=== PATIENT | female | born 2000 | race Caucasian/White ===

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

== ENCOUNTER 2023-09-04 05:18 | Inpatient (IN) ==
[2023-09-04] MEDS ORDERED: Buffered Lidocaine 1% SYRIN 1 ml INTRADERM ONE (05:30)
[2023-09-04] MEDS ORDERED: ceFOXitin 2 GM IVPREMIX 2 GM/50 ML BAG IVPB ONE (05:30)
[2023-09-04] MEDS ORDERED: Lactated Ringers 1000 ml BAG 1,000 ML IV ONE (05:30)
[2023-09-04] MEDS ORDERED: Lactated Ringers 1000 ml BAG 1,000 ML IV SCH ×2 (06:00→10:00)
[2023-09-04 06:16] LABS: ABS Monocytes 0.8 10^3/uL (0.0-0.9); ABS Nucleated RBC 0.01 10^3/ul; Eosinophil % 0.3 %; Hematocrit 30.5 % (35-45); Hemoglobin 10.1 g/dL (11.5-14.3); Lymphocyte % 27.3 %; Mean Corpuscular Hemoglobin 26.8 pg (27-33); Mean Corpuscular Hgb Conc 33.1 g/dL (31-36); Mean Corpuscular Volume 80.8 fL (80-97); Mean Platelet Volume 8.9 fL (7.5-11.2); Nucleated Red Blood Cells % 0.1 %/100WBC (0.0-0.8); Platelet Count 197 10^3/uL (150-450); Red Blood Count 3.78 10^6/uL (3.63-4.92); Red Cell Distribution Width 15.5 % (12-17); White Blood Count 10.8 10^3/uL (3.8-11.8)
[2023-09-04 06:50] LABS: Rapid COVID-19 Molecular Undetected (Undetected)
[2023-09-04 07:39] LABS: Influenza A Molecular Negative (Negative); Influenza B Molecular Negative (Negative)
[2023-09-04] MEDS ORDERED: Phenylephrine 40 mcg/mL 10mL (400mcg) SYRINGE ONE (07:41)
[2023-09-04] MEDS ORDERED: Oxytocin 10 UNITS/ML 1 ML VIAL ONE ×2 (07:41→08:52)
[2023-09-04] MEDS ORDERED: Acetaminophen IV 1 GM/100ML 1,000 MG/100 ML BAG IV ONE (07:41)
[2023-09-04] MEDS ORDERED: Ondansetron 4 mg VIAL 2 MG/ML 2 ml VIAL ONE (07:41)
[2023-09-04] MEDS: Sodium Citrate/Citric Acid LIQ 15 ML UDC PO ONE ×2 (07:56→10:04)
[2023-09-04] MEDS ORDERED: fentaNYL 100 mcg/2 ml 50 MCG/ML VIAL ONE (08:48)
[2023-09-04 08:55] LABS: Urine Appearance Clear; Urine Bilirubin Negative (Negative); Urine Blood Negative (Negative); Urine Color Straw; Urine Glucose Negative (Negative); Urine Ketones Negative (Negative); Urine Nitrite Negative (Negative); Urine Protein Negative (Negative); Urine Specific Gravity 1.008 (1.002-1.030); Urine Urobilinogen Negative (Negative)
[2023-09-04] MEDS ORDERED: HYDROmorphone 1 MG/1 ML SYRINGE IV PRN (09:02)
[2023-09-04] MEDS ORDERED: Naloxone 0.4 mg VIAL 0.4 mg/ml 1 ml VIAL IV PRN (09:02)
[2023-09-04] MEDS ORDERED: Propofol 10 MG/ML 20 ML BTL ONE (09:10)
[2023-09-04 09:16] LABS: Urine Benzodiazepine Screen None Detected (None Detect); Urine Cannabinoids Screen None Detected (None Detect); Urine Opiates Screen None Detected (None Detect)
[2023-09-04] MEDS ORDERED: Varicella Virus Vaccine Live 0.5 ML VIAL SUBCUT ONE (09:35)
[2023-09-04] MEDS ORDERED: Glycerin ADULT 2.4 gm SUPP PR PRN (09:35)
[2023-09-04] MEDS ORDERED: Witch Hazel PAD JAR TOPICAL PRN (09:35)
[2023-09-04] MEDS ORDERED: Oxytocin in LR 20,000 MILLI.UNIT/1,000 ML BAG IV SCH (09:35)
[2023-09-05 09:37] LABS: ABS Lymphocytes 2.9 10^3/uL (1.0-4.8); ABS Monocytes 0.8 10^3/uL (0.0-0.9); ABS Neutrophils 8.7 10^3/uL (1.5-7.6); Eosinophil % 0.2 %; Hematocrit 30.8 % (35-45); Hemoglobin 9.9 g/dL (11.5-14.3); Mean Corpuscular Hemoglobin 26.3 pg (27-33); Mean Corpuscular Hgb Conc 32.2 g/dL (31-36); Mean Corpuscular Volume 81.6 fL (80-97); Mean Platelet Volume 8.3 fL (7.5-11.2); Platelet Count 211 10^3/uL (150-450); Red Blood Count 3.78 10^6/uL (3.63-4.92); Red Cell Distribution Width 15.9 % (12-17); White Blood Count 12.4 10^3/uL (3.8-11.8)
[2023-09-06 07:34] VITALS: BP 103/55
== END 2023-09-06 14:21 | disposition home or self-care (01) | DRG 540 ==
LOC: MCHOB 05:18
PROVIDERS: ADMIT Obstetrics & Gynecology; ATTEND Obstetrics & Gynecology